=== PATIENT | female | born 1955 | race Two or more races ===

== ENCOUNTER 2023-05-07 20:48 | Outpatient (REF) | payer MEDICARE, OTHER, SELFPAY ==
[2023-05-10 15:09] LABS: Age Gdln ACOG Testing Note (.); Pap IG (Image Guided) Note (.)
== END 2023-05-07 20:49 | disposition home or self-care (01) ==
LOC: LAB 20:48
PROVIDERS: Visit Provider Obstetrics & Gynecology
DX: Z01.419 Encounter for gynecological examination (general) (routine) without abnormal findings (principal)
CPT/HCPCS: 87624; G0145

== ENCOUNTER 2024-04-10 09:06 | Outpatient (OUT) | payer MEDICARE, OTHER, SELFPAY ==
--- NOTE | 2024-04-10 09:15 | XR_ITS ---
The [address] [address] Patient Name: ISIDRO SAHU MRN: [id number] date: 1955 Sex: F Assigned Patient Location: [facility] Current Patient Location: Accession/Order Number: [id number] Exam Date: 04/10/2024 09:40 Report Date: 04/11/2024 05:09 At the request of: CY BRAMBILA Procedure: XR DEXA axial skeleton EXAMINATION: XR DEXA axial skeleton HISTORY: Screening For Osteoporosis COMPARISON: No relevant comparison available. TECHNIQUE: Dual-energy X-ray absorptiometry (DXA) was performed. FINDINGS: SPINE ANALYSIS: Average bone mineral density is 0.819 g/cm2. T-score (standard deviation relative to young adult mean): -3.0 . HIP ANALYSIS: Lowest bone mineral density is within the right femoral neck, 0.670 g/cm2. T-score (standard deviation relative to young adult mean): -2.6 . XR/XR DEXA axial skeleton IMPRESSION: World Health Organization Classification: Osteoporosis - High Fracture Risk FRAX: Cannot calculate. Pharmacologic treatment recommendations * No uniform recommendation applies to all patients. Management plans must be individualized. * Consider initiating pharmacologic treatment in postmenopausal women and men >= 50 years of age who have the following: Primary fracture prevention: * T-score <= - 2.5 at the femoral neck, total hip, lumbar spine, 33% radius (some uncertainty with existing data) by DXA. * Low bone mass (osteopenia: T-score between - 1.0 and - 2.5) at the femoral neck or total hip by DXA with a 10-year hip fracture risk >= 3% or a 10-year major osteoporosis-related fracture risk >= 20% (i.e., clinical vertebral, hip, forearm, or proximal humerus) based on the US-adapted FRAXregistered model. Secondary fracture prevention: * Fracture of the hip or vertebra regardless of BMD [4, 5]. * Fracture of proximal humerus, pelvis, or distal forearm in persons with low bone mass (osteopenia: T-score between - 1.0 and - 2.5). The decision to treat should be individualized in persons with a fracture of the proximal humerus, pelvis, or distal forearm who do not have osteopenia or low BMD [12, 13]. Jamie MS, Estrella SL, Roxy KL, Brian EM, Narcisa KG, AJ, Nora ES. The clinician's guide to prevention and treatment of osteoporosis. Osteoporos Int. 2021;33(10):8332-2086. doi: 10.1007/x18860-015-27587-a. Epub 2021Sep 14. Erratum in: Osteoporos Int. 2021Dec 14;: PMID: 88590024; PMCID: [id number]. Electronically authenticated by: WILMER BOYER Date: 04/11/2024 05:09
--- NOTE | 2024-04-10 09:15 | MM_ITS ---
Patient Name: ISIDRO SAHU MR#: [id number] : 1955 Exam Date: 04/10/2024 Ordering Doctor: DR Joey Newman . RADIOLOGY REPORT PROCEDURE: MM TOMOSYNTHESIS SCREENING BI COMPARISON: MG MAMM SCREEN ARTURO W CAD, 08/09/2014. INDICATIONS: Screening Calculator Name NCI Breast Cancer Risk Assessment Tool 5 Year Breast Cancer Risk 1.90% Lifetime Breast Cancer Risk 6.40% Personal Breast Cancer No Personal Ovarian Cancer No Treatments None Family Cancers Brother with bone cancer at age 58. LOCATION: The [facility] BREAST COMPOSITION: The breasts are heterogeneously dense,which may obscure small masses. FINDINGS: DIAGNOSTIC CATEGORY 1--NEGATIVE. RIGHT BREAST: No significant suspicious finding. LEFT BREAST: No significant suspicious finding. RECOMMENDATIONS: ROUTINE MAMMOGRAM AND CLINICAL EVALUATION IN 12 MONTHS. PLEASE NOTE: A NORMAL MAMMOGRAM DOES NOT EXCLUDE THE POSSIBILITY OF BREAST CANCER. A CLINICALLY SUSPICIOUS PALPABLE LUMP SHOULD BE BIOPSIED. Dictated by: Josh Skinner M.D. on 04/14/2024 at 13:26 Approved by: Josh Skinner M.D. on 04/14/2024 at 13:49
--- OUTSIDE RECORDS SUMMARY | 2024-04-10 09:22 | XMS_ITS | CCD ---
Author Organization [facility] Care Team Providers Care Director Ehs Name Role Phone Garima Mitchell Unavailable JAIME GABRIEL Referring Unavailable NO PCP, NO PCP Primary Care Unavailable JAIME GABRIEL Referring Unavailable NO PCP, NO PCP Primary Care Unavailable JAIME GABRIEL Attending Unavailable JAIME GABRIEL Admitting Unavailable NONE, NONE Primary Care Unavailable Medications Current Medications Medication Drug Class(es) Dates Sig (Normalized) Sig (Original) cetirizine hydrochloride 10 mg oral tablet (1 source) Histamine-1 Receptor Antagonist Start: 05-16-2023 take 1 tablet by mouth every twelve hours Cetirizine HCl 10 MG 1 tablet Orally Twice a day for 10 days Apr, Active fluticasone propionate 0.05 mg/actuat metered dose nasal spray (1 source) Corticosteroid Start: 05-16-2023 take 1 spray(s) nasal route twice daily Flonase Allergy Relief 50 MCG/ACT 1 spray in each nostril Nasally Twice a day for 14 days Apr, Active Problems Active Problems Problem Classification Problem Date Documented Date Episodic/Chronic Essential hypertension (1 source) Essential (primary) hypertension; Translations: [Essential (primary) hypertension] Onset: 05-27-2023 Chronic Otitis media and related conditions (1 source) Other acute nonsuppurative otitis media, bilateral Episodic Prolapse of female genital organs (4 sources) Urethrocele; Translations: [Female genital prolapse, unspecified] Onset: 05-27-2023 Chronic Past or Other Problems Problem Classification Problem Date Documented Date Episodic/Chronic Other nervous system disorders (1 source) Other acute postprocedural pain; Translations: [Other acute postprocedural pain] Onset: 05-30-2023 Episodic Results Test Name Value Interpretation Reference Range Facility OPERATIVE REPORTon OPERATIVE REPORT [address] [place] [address] OPERATIVE REPORT PATIENT NAME: ISIDRO SAHU : 1955 MED REC NO: [id number] ROOM: ACCOUNT NO: [id number] ADMIT DATE: 05/30/2023 PROVIDER: Jaime Gabriel DO DATE OF PROCEDURE: 05/30/2023 INDICATIONS FOR SURGERY: Symptomatic pelvic organ prolapse unamenable to conservative therapy without objectively demonstrable stress incontinence. PREOPERATIVE DIAGNOSIS: Grade 3 cystocele with grade 1 vaginal wall prolapse versus posterior apical rectocele. POSTOPERATIVE DIAGNOSIS: Grade 3 cystocele with grade 1 vaginal wall prolapse versus posterior apical rectocele. PROCEDURES: Anterior colporrhaphy, posterior colpoperineorrhaphy with iliococcygeus fascial plication and levatorplasty. SURGEON: Jaime Gabriel DO ASSISTANTS: Vanessa Vazquez DO and Alka Martinez DO ANESTHESIA: General endotracheal. FINDINGS: As above. SPECIMENS: Vaginal mucosa. COMPLICATIONS: None. ESTIMATED BLOOD LOSS: 20 mL. DRAINS: In-and-out Corey catheterization. IMPLANTS: None. PACKING: None. COURSE: Prior to the procedure, risks and benefits of the procedure were explained to the patient. The patient understood and signed informed consent under no duress or confusion. She received a preoperative antibiotic and EPC cuffs were functional. She was taken back to the OR and prepped and draped in sterile fashion in the dorsal lithotomy position in [facility]-cane stirrups. She was confirmed to be neutrally positioned by myself. A surgical time-out occurred. A weighted speculum was placed in the vagina and the bladder was drained with in-and-out Corey catheterization. There was a mild vault prolapse, but what was more obvious that there was more of a posterior high rectocele that would need repair in order to maintain the proper access after the anterior colporrhaphy. The anterior colporrhaphy was started with first by making a midline incision under the dependent portion of the cystocele. The cystocele was dissected back away from perivesical fascia and mucosa. There was no anterior enterocele. Horizontal plication of the suburethral tissues was completed with 2-0 Vicryl suture to plicate medial and lateral perivesical fascia. The redundant apical third of the bladder was pursestringed to reduce its central bulk and to prevent ureteral entrapment. A secondary layer of lateral perivesical fascia was brought into the midline in an attempt to reestablish the apical pubovaginal ring. Redundant mucosa was trimmed. The mucosa was closed with running 2-0 Vicryl suture. Next, posterior apical colpoperineorrhaphy with extension down to the introitus was made with a vertical incision. There was no significant enterocele or sigmoidocele. Once the rectocele was dissected away, midline plication with 1-0 Vicryl suture occurred and then a high iliococcygeus fascial plication was completed with 1-0 Vicryl suture to reestablish posterior apical support and maintain the proper axis of the vagina. Levatorplasty by plicating the arcus tendineus fascia rectus was also done without hour glassing the vagina. The confluence of the perineal body was built up for level 3 support with 1-0 Vicryl suture. 1-0 Vicryl suture was also used from the apex to introitus to close the superficial perirectal fascia and mucosa in a running manner. The vagina had good depth and girth and could admit two fingers up to the knuckle. Sponge and needle counts were correct at this time. Cystourethroscopy with 17-Bulgarian 30-degree cystourethroscope confirmed bilateral ureteral patency and no evidence of leakage at 300 mL of filling on a Valsalva-Crede maneuver. There was no cystotomy or intravesical suturing. A rectal exam confirmed no rectotomy or bleeding and no intrarectal sutures. The bladder was drained 50%. The procedure was felt to be complete. A postoperative time-out occurred. The patient went to Recovery in stable fashion. The family was updated by personal consultation. An attempt at voiding trial will be done. The patient may go home with the catheter and she has voiced she has reviewed both written and video instructions. She will go home on usual medicines, may restart her home medicines. She will follow up in 1 week and then will be called tomorrow for a weekend safety check. JAIME GABRIEL DO ETELVINA/[id number] Doc#: [id number] CC: Jaime Gabreil DO Normal [facility] Surgical Pathology Reporton 05-30-2023 Surgical Pathology Report (NOTE) Path Number: [id number] -- Diagnosis -- VAGINAL MUCOSA, EXCISION: - BENIGN SQUAMOUS MUCOSA WITH FOCAL/MILD REACTIVE SURFACE HYPERKERATOSIS AND PARAKERATOSIS AND WITH MILD SUBEPITHELIAL FIBROSIS AND MILD CHRONIC INFLAMMATION. Jm Fowler M.D. Electronically Signed Out sls/06/03/2023 Clinical Information Pre-Op Diagnosis: VAGINAL PROLAPSE; CYSTOCELE, UNSPECIFIED Operative Findings: VAGINAL MUCOSA Operation Performed: VAGINAL REPAIR ANTERIOR AND POSTERIOR WITH CYSTO kb Source of Specimen A: VAGINAL MUCOSA Gross Description ISIDRO SAHU VAGINAL MUCOSA Received in formalin are two crane-britt, wrinkled and rubbery fragments of vaginal mucosa, 4.9 and 6.0 cm. Sectioning reveals britt, rubbery cut surfaces with no well-defined mass or lesion identified. Integrated Circuit Design Engineer sections 1c. tm SM/kb2:05/31/2023 Microscopic Description Microscopic examination performed. Processing Lab: [place] [address] Interpretation Performed at [place] [id number] SURGICAL PATHOLOGY CONSULTATION Patient Name: ISIDRO SAHU [facility] Rec: [id number] [facility] ANATOMIC PATHOLOGY [address] [place] [address]. [place] [address] Normal [facility] BASIC METABOLIC PANLon 05-27 Anion gap [Moles/Vol] 6 mmol/L Normal 5-15 [facility] Comment on above: Performed By: #### B MP, CBCA #### [facility] ([id number]) [address], [address] [place] [address] Calcium [Mass/Vol] 9.5 mg/dL Normal 8.5-10.5 [facility] Comment on above: Performed By: #### B MP, CBCA #### [facility] ([id number]) [address] [place] [address] Chloride [Moles/Vol] 106 mmol/L Normal 98-109 [facility] Comment on above: Performed By: #### DIPAK Ruano MP #### [facility] ([id number]) [address] [address] CO2 [Moles/Vol] 31 mmol/L Normal 22-32 [facility] Comment on above: Performed By: #### DIPAK Ruano MP #### [facility] ([id number]) [address] [address] Creatinine [Mass/Vol] 0.76 mg/dL Normal 0.40-1.00 [facility] Comment on above: Result Comment: METH OD TRACEABLE TO IDMS STANDARD Performed By: #### B DIPAK KAY #### [facility] ([id number]) [address] [address] GFR/1.73 sq M.predicted among non-blacks MDRD (S/P/Bld) [Vol rate/Area] 86 mL/min/{1.73_m2} Normal >59 [facility] Comment on above: Result Comment: Reported eGFR is based on the CKD-EPI 2020 equation that does not use a race coefficient. Performed By: #### DIPAK Ruano MP #### [facility] ([id number]) [address] [address] Glucose [Mass/Vol] 93 mg/dL Normal 65-99 [facility] Comment on above: Performed By: #### DIPAK Ruano MP #### [facility] ([id number]) [address] [address] Potassium [Moles/Vol] 4.0 mmol/L Normal 3.5-5.0 [facility] Comment on above: Performed By: #### DIPAK Ruano MP #### [facility] ([id number]) [address] [place] [address] Sodium [Moles/Vol] 143 mmol/L Normal 134-146 [facility] Comment on above: Performed By: #### B RAHUL CBCA #### [facility] ([id number]) [address] [address] [place] [address] Urea nitrogen [Mass/Vol] 16 mg/dL Normal 5-27 [facility] Comment on above: Performed By: #### B RAHUL, CBCA #### [facility] ([id number]) [address] [address] CBC AND AUTO DIFFon 05-27-19 24 ABSOLUTE BASOPHIL 0.0 X10E9/L Normal 0.0-0.2 [facility] Comment on above: Performed By: #### B RAHUL, CBCA #### [facility] ([id number]) [address] [address] ABSOLUTE NEUTROPHIL 2.6 X10E9/L Normal 1.5-6.6 [facility] Comment on above: Performed By: #### B RAHUL CBCA #### [facility] ([id number]) [address] [address] Basophils/100 WBC (Bld) 0.6 % Normal [facility] Comment on above: Performed By: #### B RAHUL, CBCA #### [facility] ([id number]) [address] [address] Eosinophils (Bld) [#/Vol] 0.1 10*3/uL Normal 0.0-0.4 [facility] Comment on above: Performed By: #### B MP, CBCA #### [facility] ([id number]) [address] [address] [place] [address] Eosinophils/100 WBC (Bld) 1.4 % Normal [facility] Comment on above: Performed By: #### B MP, CBCA #### [facility] ([id number]) [address] [address] [place] [address] Erythrocyte distribution width (RBC) [Ratio] 12.5 % Normal 11.5-15.0 [facility] Comment on above: Performed By: #### B MP, CBCA #### [facility] ([id number]) [address], [address] [place] [address] Hematocrit (Bld) [Volume fraction] 40.8 % Normal 35-47 [facility] Comment on above: Performed By: #### B MP, CBCA #### [facility] ([id number]) [address] [address] [place] [address] Hemoglobin (Bld) [Mass/Vol] 13.8 g/dL Normal 11.7-15.5 [facility] Comment on above: Performed By: #### B MP, CBCA #### [facility] ([id number]) [address] [address] [place] [address] Lymphocytes (Bld) [#/Vol] 1.9 10*3/uL Normal 1.0-3.5 [facility] Comment on above: Performed By: #### B MP, CBCA #### [facility] ([id number]) [address] [address] [place] [address] Lymphocytes/100 WBC (Bld) 38.5 % Normal [facility] Comment on above: Performed By: #### B MP, CBCA #### [facility] ([id number]) [address] [address] [place] [address] MCH (RBC) [Entitic mass] 33.2 pg Normal 27-34 [facility] Comment on above: Performed By: #### B MP, CBCA #### [facility] ([id number]) [address] [address] [place] [address] MCHC (RBC) [Mass/Vol] 33.8 g/dL Normal 32-36 [facility] Comment on above: Performed By: #### B MP, CBCA #### [facility] ([id number]) [address], [address] [place] [address] MCV (RBC) [Entitic vol] 98 fL Normal 80-100 [facility] Comment on above: Performed By: #### B MP, CBCA #### [facility] ([id number]) [address], [facility] [address] [place] [address] Monocytes (Bld) [#/Vol] 0.3 10*3/uL Normal 0-0.9 [facility] Comment on above: Performed By: #### B MP, CBCA #### [facility] ([id number]) [address], [address] [place] [address] Monocytes/100 WBC (Bld) 6.8 % Normal [facility] Comment on above: Performed By: #### B MP, CBCA #### [facility] ([id number]) [address], [facility] [address] [place] [address] Neutrophils/100 WBC (Bld) 52.7 % Normal [facility] Comment on above: Performed By: #### B MP, CBCA #### [facility] ([id number]) [address], [address] [place] [address] Platelet mean volume (Bld) [Entitic vol] 8.5 fL Normal 7-12 [facility] Comment on above: Performed By: #### B MP, CBCA #### [facility] ([id number]) [address], [address] [place] [address] Platelets (Bld) [#/Vol] 228 10*3/uL Normal 150-450 [facility] Comment on above: Performed By: #### B MP, CBCA #### [facility] ([id number]) [address], [address] [place] [address] RBC COUNT 4.16 X10E12/L Normal 3.80-5.20 [facility] Comment on above: Performed By: #### B MP, CBCA #### [facility] ([id number]) [address], [address] [place] [address] WBC (Bld) [#/Vol] 4.9 10*3/uL Normal 4.0-11.0 [facility] Comment on above: Performed By: #### B MP, CBCA #### [facility] ([id number]) [address], [address] [place] [address] Vital Signs Date Time Vital Sign Value Performing Clinician Facility 05-16-2023 12:15-0500 Body height 152.4 cm Garima Mitchell Other [facility] Other 05-16-2023 12:15-0500 Body mass index (BMI) [Ratio] 30.27 kg/m2 Garima Mitchell Other [facility] Other 05-16-2023 12:15-0500 Body temperature 98.2 [degF] Garima Mitchell Other [facility] Other 05-16-2023 12:15-0500 Body weight 70.31 kg Garima Mitchell Other [facility] Other 05-16-2023 12:15-0500 Diastolic blood pressure 81 mm[Hg] Garima Mitchell Other [facility] Other 05-16-2023 12:15-0500 Respiratory rate 18 /min Garima Mitchell Other [facility] Other 05-16-2023 12:15-0500 SaO2% (BldA) [Mass fraction] 97 % Garima Mitchell Other [facility] Other 05-16-2023 12:15-0500 Systolic blood pressure 151 mm[Hg] Garima Mitchell Other [facility] Other Encounters Encounter Date Encounter Type Care Provider Facility Start: 05-30-2023 End: 05-30-2023 ambulatory JAIME GABRIEL [facility] Start: 05-27-2023 End: 05-28-2023 ambulatory JAIME Ashley [facility] Start: 05-16-2023 End: 05-16-2023 ambulatory Garima Mitchell Other [facility] Other Start: 05-16-2023 Office outpatient ne w 30 minutes Garima Mitchell [facility] [place] Payers Date Payer Category Payer Medicare [id number] 2.1 [id number] 2022 Unknown [id number] 1955 Unknown [id number] 2.16.84 [id number] 1955 Unknown [id number] 2.16.84 [id number] 1955 Unknown [id number] [id number]. [id number] Unknown [id number] 2.16.8 [id number] Social History Date Type Detail Facility Unknown if ever smoked [facility] Other Sex Assigned At Sex Assigned At Bir th [facility] Other Evaluation note 05-16-2023 Note Date & Type Note Facility 05-16-2023 Evaluation note Encounter Date Diagnosis Assessment Notes Apr, Acute middle ear effusion, bilateral (ICD-10 - H65.193) Discussed diagnosis with patient, explained to patient that there is middle ear fluid without signs of bacterial infection, antibiotics are not indicated at this time. This is commonly due to ET dysfunction, viral illness, allergies, barotrauma, or recent AOM. Advised patient that fluid in middle ear may take several weeks to resolve. Take rx medications as directed. Supportive treatment as directed, push fluids/test, Tylenol/Motrin for discomfort. Follow up with PCP in 2 weeks or sooner for new or worsening symptoms. Patient verbalizes understanding and is agreeable to treatment plan [facility] Other History general Narrative - Reported Note Date & Type Note Facility History general Narrative - Reported Type Surgical History partial hysterectomy Surgical History eptopic Surgical History vaginal prolapse [facility] Other Summary Purpose Family History No Family History Records FoundNo Family History Records Found Advance Directives No Advanced Directives Records FoundNo Advanced Directives Records Found Additional Source Comments REASON FOR VISIT (unrecogniz ed section and content) PLUGGED EAR, LIGHT HEADNESS INFORMATION SOURCE (unrecogn ized section and content) DATE CREATED AUTHOR 06/02/2023 [facility] DATE CREATED AUTHOR AUTHOR'S ORGANIZ ATION 01/11/2024 [facility] FOR RECORDS PERTAINING TO PATIENTS WHO ARE OR HAVE BEEN ENROLLED IN A CHEMICAL DEPENDENCY/SUBSTANCEABUSE PROGRAM, SOME INFORMATION MAY BE OMITTED. This clinical summary was aggregated from multiple sources. Caution should be exercised in using it in the provision of clinical care. This summary normalizes information from multiple sources, and as a consequence, information in this document may materially change the coding, format and clinical context of patient data. In addition, data may be omitted in some cases. CLINICAL DECISIONS SHOULD BE BASED ON THE PRIMARY CLINICAL RECORDS. [employer] provides no warranty or guarantee of the accuracy or completeness of information in this document.
== END 2024-04-10 09:07 | disposition home or self-care (01) ==
LOC: MAMMO 09:09
PROVIDERS: Visit Provider Obstetrics & Gynecology
DX: Z12.31 Encounter for screening mammogram for malignant neoplasm of breast (principal); Z13.820 Encounter for screening for osteoporosis; M81.0 Age-related osteoporosis without current pathological fracture
CPT/HCPCS: 77063; 77067; 77080

== ENCOUNTER 2024-06-03 20:48 | Outpatient (REF) | payer MEDICARE, OTHER, SELFPAY ==
--- OUTSIDE RECORDS SUMMARY | 2024-06-03 20:52 | XMS_ITS | CCD ---
Author Organization [facility] Care Team Providers Care Document Management Consultant Name Role Phone Garima Mitchell Unavailable JAIME GABRIEL Referring Unavailable NO PCP, NO PCP Primary Care Unavailable JAIME GABRIEL Referring Unavailable NO PCP, NO PCP Primary Care Unavailable JAIME GABRIEL Attending Unavailable JAIME GABRIEL Admitting Unavailable NONE, NONE Primary Care Unavailable Unavailable Primary Care Provider Unavailkatie e CY NEWMAN Attending Unavailable CY NEWMAN Attending Unavailable Medications Current Medications Medication Drug Class(es) [...] Translations: [Essential (primary) hypertension] Onset: 05-27-2023 Chronic Osteoporosis (2 sources) Osteoporosis; Translations: [Age-related osteoporosis without current pathological fracture] 04-29-2024 Chronic Other screening for suspected conditions (not mental disorders or infectious disease) (2 sources) Patient encounter status; Translations: [Encounter for screening mammogram for malignant neoplasm of breast] 06-03-2024 Episodic Otitis media and related conditions (1 source) [...] Reference Range Facility OPERATIVE REPORTon OPERATIVE REPORT [address] [address] OPERATIVE REPORT PATIENT NAME: INDIA SAHU : 1955 MED REC NO: [id number] ROOM: ACCOUNT NO: [id number] ADMIT DATE: 05/30/2023 PROVIDER: Jaime Gabriel DO [...] fashion in the dorsal lithotomy position in [facility] stirr[facility]. She was confirmed to be neutrally [...] were correct at this time. Cystourethroscopy with 17-Chinese 30-degree cystourethroscope confirmed bilateral ureteral patency and [...] tomorrow for a weekend safety check. JAIME Ramirez DO HARVEY ETELVINA/[email or web address] Doc#: [id number] CC: Jaime Gabriel DO Normal [facility] Surgical Pathology Reporton 05-30-2023 Surgical Pathology Report (NOTE) Path Number: [id number] -- Diagnosis -- VAGINAL MUCOSA, EXCISION: - BENIGN SQUAMOUS MUCOSA WITH FOCAL/MILD REACTIVE SURFACE HYPERKERATOSIS AND PARAKERATOSIS AND WITH MILD SUBEPITHELIAL FIBROSIS AND MILD CHRONIC INFLAMMATION. Jm Fowler M.D. Electronically Signed Out sls/06/03/2023 Clinical Information Pre-Op Diagnosis: VAGINAL PROLAPSE; CYSTOCELE, UNSPECIFIED Operative Findings: VAGINAL MUCOSA Operation Performed: VAGINAL REPAIR ANTERIOR AND POSTERIOR WITH CYSTO kb Source of Specimen A: VAGINAL MUCOSA Gross Description INDIA SAHU, VAGINAL MUCOSA Received in formalin are two crane-britt, wrinkled and rubbery fragments of vaginal mucosa, 4.9 and 6.0 cm. Sectioning reveals britt, rubbery cut surfaces with no well-defined mass or lesion identified. Nuclear Logging Engineer sections 1c. tm SM/kb2:05/31/2023 Microscopic Description Microscopic examination performed. Processing Lab: [address] [address] Interpretation Performed at [address] [address] SURGICAL PATHOLOGY CONSULTATION Patient Name: INDIA SAHU [facility] Rec: [id number] [facility] ANATOMIC PATHOLOGY [address] [place] [address]. [place], [place] [address] Normal [facility] BASIC METABOLIC PANLon 05-27 Anion gap [Moles/Vol] 6 mmol/L Normal 5-15 [facility] Comment on above: Performed By: #### B MP, CBCA #### [facility] ([id number]) [address], [address] [place] [address] Calcium [Mass/Vol] 9.5 mg/dL Normal 8.5-10.5 [facility] Comment on above: Performed By: #### B RAHUL, CBCA #### [facility] ([id number]) [address], [address] [place] [address] Chloride [Moles/Vol] 106 mmol/L Normal 98-109 [facility] Comment on above: Performed By: #### B RAHUL CBCA #### [facility] ([id number]) [address], [address] [place] [address] CO2 [Moles/Vol] 31 mmol/L Normal 22-32 [facility] Comment on above: Performed By: #### B RAHUL CBCA #### [facility] ([id number]) [address], [address] [place] [address] Creatinine [Mass/Vol] 0.76 mg/dL Normal 0.40-1.00 [facility] Comment on above: Result Comment: METH OD TRACEABLE TO IDMS STANDARD Performed By: #### B DIPAK KAY #### [facility] ([id number]) [address], [address] [place] [address] GFR/1.73 sq M.predicted among non-blacks MDRD (S/P/Bld) [Vol rate/Area] 86 mL/min/{1.73_m2} Normal >59 [facility] Comment on above: Result Comment: Reported eGFR is based on the CKD-EPI 2020 equation that does not use a race coefficient. Performed By: #### B RAHUL CBCA #### [facility] ([id number]) [address], [address] [place] [address] Glucose [Mass/Vol] 93 mg/dL Normal 65-99 [facility] Comment on above: Performed By: #### B WINIFRED KAYA #### [facility] ([id number]) [address] [place] [address] Potassium [Moles/Vol] 4.0 mmol/L Normal 3.5-5.0 [facility] Comment on above: Performed By: #### B MP, CBCA #### [facility] ([id number]) [address] [place] [address] Sodium [Moles/Vol] 143 mmol/L Normal 134-146 [facility] Comment on above: Performed By: #### B MP, CBCA #### [facility] ([id number]) [address] [place] [address] Urea nitrogen [Mass/Vol] 16 mg/dL Normal 5-27 [facility] Comment on above: Performed By: #### B MP, CBCA #### [facility] ([id number]) [address] [place] [address] CBC AND AUTO DIFFon 05-27-19 24 ABSOLUTE BASOPHIL 0.0 X10E9/L Normal 0.0-0.2 [facility] Comment on above: Performed By: #### B MP, CBCA #### [facility] ([id number]) [address], [address] [place] [address] ABSOLUTE NEUTROPHIL 2.6 X10E9/L Normal 1.5-6.6 [facility] Comment on above: Performed By: #### B MP, CBCA #### [facility] ([id number]) [address] [place] [address] Basophils/100 WBC (Bld) 0.6 % Normal [facility] Comment on above: Performed By: #### B MP, CBCA #### [facility] ([id number]) [address] [place] [address] Eosinophils (Bld) [#/Vol] 0.1 10*3/uL Normal 0.0-0.4 [facility] Comment on above: Performed By: #### B MP, CBCA #### [facility] ([id number]) [address], [address] [place] [address] Eosinophils/100 WBC (Bld) 1.4 % Normal [facility] Comment on above: Performed By: #### B MP, CBCA #### [facility] ([id number]) [address] [address] [place] [address] Erythrocyte distribution width (RBC) [Ratio] 12.5 % Normal 11.5-15.0 [facility] Comment on above: Performed By: #### B MP, CBCA #### [facility] ([id number]) [address] [address] [place] [address] Hematocrit (Bld) [Volume fraction] 40.8 % Normal 35-47 [facility] Comment on above: Performed By: #### B MP, CBCA #### [facility] ([id number]) [address] [address] [place] [address] Hemoglobin (Bld) [Mass/Vol] 13.8 g/dL Normal 11.7-15.5 [facility] Comment on above: Performed By: #### B MP, CBCA #### [facility] ([id number]) [address] [place] [address] Lymphocytes (Bld) [#/Vol] 1.9 10*3/uL Normal 1.0-3.5 [facility] Comment on above: Performed By: #### B MP, CBCA #### [facility] ([id number]) [address] [address] [place] [address] Lymphocytes/100 WBC (Bld) 38.5 % Normal [facility] Comment on above: Performed By: #### B MP, CBCA #### [facility] ([id number]) [address] [place] [address] MCH (RBC) [Entitic mass] 33.2 pg Normal 27-34 [facility] Comment on above: Performed By: #### B MP, CBCA #### [facility] ([id number]) [address] [place] [address] MCHC (RBC) [Mass/Vol] 33.8 g/dL Normal 32-36 [facility] Comment on above: Performed By: #### B MP, CBCA #### [facility] ([id number]) [address] [place] [address] MCV (RBC) [Entitic vol] 98 fL Normal 80-100 [facility] Comment on above: Performed By: #### B RAHUL, CBCA #### [facility] ([id number]) [address] [place] [address] Monocytes (Bld) [#/Vol] 0.3 10*3/uL Normal 0-0.9 [facility] Comment on above: Performed By: #### B MP, CBCA #### [facility] ([id number]) [address] [place] [address] Monocytes/100 WBC (Bld) 6.8 % Normal [facility] Comment on above: Performed By: #### B MP, CBCA #### [facility] ([id number]) [address] [place] [address] Neutrophils/100 WBC (Bld) 52.7 % Normal [facility] Comment on above: Performed By: #### B MP, CBCA #### [facility] ([id number]) [address] [place] [address] Platelet mean volume (Bld) [Entitic vol] 8.5 fL Normal 7-12 [facility] Comment on above: Performed By: #### B MP, CBCA #### [facility] ([id number]) [address] [place] [address] Platelets (Bld) [#/Vol] 228 10*3/uL Normal 150-450 [facility] Comment on above: Performed By: #### B MP, CBCA #### [facility] ([id number]) [address] [place] [address] RBC COUNT 4.16 X10E12/L Normal 3.80-5.20 [facility] Comment on above: Performed By: #### B MP, CBCA #### [facility] ([id number]) [address] [place] [address] WBC (Bld) [#/Vol] 4.9 10*3/uL Normal 4.0-11.0 [facility] Comment on above: Performed By: #### B MP, CBCA #### [facility] ([id number]) [address] [place] [address] Vital Signs Date Time Vital Sign Value Performing Clinician Facility 06-03-2024 10:00-0500 Body weight 72.3 kg Jovita DENNIS Work Phone: [facility] 06-03-2024 10:00-0500 Diastolic blood pressure 84 mm[Hg] Jovita DENNIS Work Phone: [facility] 06-03-2024 10:00-0500 Systolic blood pressure 132 mm[Hg] Jovita DENNIS Work Phone: [facility] 05-16-2023 12:15-0500 Body height 152.4 cm Garima Mitchell Other [email or web address] Other 05-16-2023 12:15-0500 Body mass index (BMI) [Ratio] 30.27 kg/m2 Garima Mitchell Other [email or web address] Other 05-16-2023 12:15-0500 Body temperature 98.2 [degF] Garima Mitchell Other [email or web address] Other 05-16-2023 12:15-0500 Body weight 70.31 kg Garima Mitchell Other [email or web address] Other 05-16-2023 12:15-0500 Diastolic blood pressure 81 mm[Hg] Garima Mitchell Other [email or web address] Other 05-16-2023 12:15-0500 Respiratory rate 18 /min Garima Mitchell Other [email or web address] Other 05-16-2023 12:15-0500 SaO2% (BldA) [Mass fraction] 97 % Garima Mitchell Other [email or web address] Other 05-16-2023 12:15-0500 Systolic blood pressure 151 mm[Hg] Garima Mitchell Other [email or web address] Other Encounters Encounter Date Encounter Type Care Provider Facility Start: 06-03-2024 End: 06-03-2024 Bamboo flowsheet Jovita DENNIS Work Phone: [facility] Start: 06-03-2024 End: 06-03-2024 Bamboo flowsheet Jovita DENNIS Work Phone: [facility] Start: 06-03-2024 End: 06-03-2024 Patient encounter procedure Jovita DENNIS Work Phone: [facility] Work Phone: Start: 06-03-2024 End: 06-03-2024 Periodic preventive med est patient 65yrs& older Jovita DENNIS Work Phone: [facility] Comment on above: Well woman exam with routine gynecological exam; Encounter for screening mammogram for malignant neoplasm of breast Start: 04-29-2024 End: 04-29-2024 ambulatory CY JARVISO Not Available Start: 04-29-2024 End: 04-29-2024 Phys/qhp telephone evaluation 5-10 min Cy Jarviso DO Work Phone: [facility] Comment on above: Osteoporosis of mult iple sites without pathological fracture (CMS/HCC) Start: 05-30-2023 End: 05-30-2023 ambulatory JAIME GABRIEL [facility] Start: 05-27-2023 End: 05-28-2023 ambulatory JAIME GABRIEL [facility] Start: 05-16-2023 End: 05-16-2023 ambulatory Garima Mitchell Other [email or web address] Other Start: 05-16-2023 Office outpatient ne w 30 minutes Garima Mitchell [facility] Start: 05-07-2023 End: 05-07-2023 ambulatory CY NEWMAN Not Available Plan of Treatment Date Care Activity Detail Author Start: 06-03-2024 End: 06-03-2025 Lipid 1996 panel - Serum or Plasma Lipid panel Lab Routine Well woman exam with routine gynecological exam Expected: 06/03/2024 (Approximate), Expires: 06/03/2025 [facility] Comment on above: Expected: 06/03/2024 (Approximate), Expires: 06/03/2025 Start: 06-03-2024 End: 08-01-2025 MG Breast - bilateral Screening Bilateral screening mammogram Imaging Routine Encounter for screening mammogram for malignant neoplasm of breast Expected: 06/03/2024, Expires: 08/01/2025 [facility] Work Phone: Comment on above: Expected: 06/03/2024 , Expires: 08/01/2025 Start: 06-03-2024 End: 06-03-2024 Patient encounter procedure 06/03/2024 10:00 AM EST Office Visit [facility] [address] [place] [address] Jovita Horowitz PA [address] [place] [address] Arrived [facility] Comment on above: Arrived Start: 05-25-2024 End: 05-25-2024 Patient encounter procedure 05/25/2024 10:00 AM EST Office Visit [facility] [address] [facility] [place] [id number] Cy Newman DO [address] [place] [address] [facility] CBC W Auto Different ial panel - Blood CBC and differential Lab Routine Well woman exam with routine gynecological exam Ordered: 06/03/2024 [facility] Comment on above: Ordered: 06/03/2024 Comprehensive metabo lic 2000 panel - Serum or Plasma Comprehensive metabolic panel Lab Routine Well woman exam with routine gynecological exam Ordered: 06/03/2024 [facility] Comment on above: Ordered: 06/03/2024 Hemoglobin A1c/Hemoglobin.total in Blood Hemoglobin A1c Lab Routine Well woman exam with routine gynecological exam Ordered: 06/03/2024 [facility] Comment on above: Ordered: 06/03/2024 THIN PREP TIS PAP AN D HR HPV DNA THIN PREP TIS PAP AND HR HPV DNA Pathology and Cytology Routine Well woman exam with routine gynecological exam Ordered: 06/03/2024 [facility] Comment on above: Ordered: 06/03/2024 Thyrotropin [Units/volume] in Serum or Plasma TSH Lab Routine Well woman exam with routine gynecological exam Ordered: 06/03/2024 [facility] Comment on above: Ordered: 06/03/2024 Payers Date Payer Category Payer Medicare MEDICARE [id number] 2022 Private Health Insurance [facility] [place] [address] [id number] 2022 Medicare [id number] 2022 Unknown [id number] 2022 Unknown [id number] 1955 Unknown [id number] [id number] 1955 Unknown [id number] [id number] 1955 Unknown [id number] [id number] 1955 Unknown [id number] [id number] 1955 Unknown [id number] [id number] Social History Date Type Detail Facility Unknown if ever smoked [email or web address] Other Sex Assigned At Sex Assigned At Bir th [email or web address] Other Tobacco smoking stat [facility] Tobacco smoking consumption unknown [facility] Start: 1955 Sex assigned at Female [facility] Start: 02-04-2023 Gender identity Identifies as female gender (finding) [facility] Start: 02-04-2023 Sexual orientation Heterosexual (finding) [facility] History of Present illness Narrative 06-03-2024 SONNY Romero - 06/03/2024 10:00 AM EST Note Date & Type Note Facility 06-03-2024 History of Presen t illness Narrative Reason for Appointment: Patient ID: Lupe Sahu is a 69 y.o. female who presents for Well Women Visit Patient presents today for Annual Exam. MEDICATIONS No current outpatient medications ALLERGIES No Known Allergies PROBLEMS Active Ambulatory Problems Diagnosis Date Noted No Active Ambulatory Problems Resolved Ambulatory Problems Diagnosis Date Noted No Resolved Ambulatory Problems Past Medical History: Diagnosis Date Androgenic alopecia Ectopic Herpes zoster Menopause present Menorrhagia Pneumococcal sepsis (CMS/[facility]) HISTORY PAST MEDICAL HISTORY SOCIAL HISTORY Past Medical History: Diagnosis Date Androgenic alopecia hx high DHEA Ectopic Herpes zoster Menopause present Menorrhagia Pneumococcal sepsis (CMS/HCC) Social History Tobacco Use Smoking status: Not on file Smokeless tobacco: Not on file Substance Use Topics Alcohol use: Not on file Drug use: Not on file FAMILY HISTORY Family History Problem Relation Name Age of Onset Other (Lumbar Stenosis) Mother Cancer Father Heart disease Brother Older brother deceasec 2010 , myocardial disease Heart disease Maternal Grandmother Pneumonia Maternal Grandfather Stroke Paternal Grandfather Hypothyroidism Daughter SURGICAL HISTORY Past Surgical History: Procedure Laterality Date ABDOMINAL [place]STERECTOMY [facility] [place] Abdominal hysterectomy, has ovaries CHEST TUBE following pneumococcal sepsis DILATION AND CURETTAGE 1982 VAGINAL PROLAPSE REPAIR N/A 05/2023 REVIEW OF SYSTEMS Review of Systems: Review of Systems Constitutional: Negative. HENT: Negative. Eyes: Negative. Respiratory: Negative. Cardiovascular: Negative. Gastrointestinal: Negative. Genitourinary: Negative. Musculoskeletal: Negative. Skin: Negative. Neurological: Negative. All other systems reviewed and are negative. Hematological: Negative. Endocrine: Negative. Allergic/Immunologic: Negative. OBJECTIVE Objective: Physical Exam Constitutional: Appearance: Normal appearance. Genitourinary: Right Adnexa: not tender and no mass present. Left Adnexa: not tender and no mass present. Cervix is absent. No cervical discharge. Uterus is absent. Breasts: Breasts are soft. Right: Normal. Left: Normal. HENT: Head: Normocephalic. Nose: Nose normal. Mouth/Throat: Mouth: Mucous membranes are moist. Cardiovascular: Rate and Rhythm: Normal rate. Pulmonary: Effort: Pulmonary effort is normal. Abdominal: General: Bowel sounds are normal. Palpations: Abdomen is soft. Musculoskeletal: General: Normal range of motion. Cervical back: Normal range of motion. Neurological: General: No focal deficit present. Mental Status: She is alert. Skin: General: Skin is warm and dry. Psychiatric: Mood and Affect: Mood normal. Vitals and nursing note reviewed. Exam conducted with a talent recruiter present. Vitals: There is no height or weight on file to calculate BMI. BP: 132/84 No LMP recorded. ASSESSMENT & PLAN ICD-10-CM 1. Well woman exam with routine gynecological exam Z01.419 THIN PREP TIS PAP AND HR HPV DNA 2. Encounter for screening mammogram for malignant neoplasm of breast Z12.31 Bilateral screening mammogram Bilateral screening mammogram Annual Exam: Patient presents today for an annual exam. Patient states she is doing well and has no complaints. Pap was obtained without difficulty. Orders Placed This Encounter Procedures Bilateral screening mammogram TSH Lipid panel Comprehensive metabolic panel Hemoglobin A1c CBC and differential Follow Up: Patient is to return in one year for annual unless needed otherwise. Documented by SONNY Romero on behalf of: SONNY Romero documented in this encounter [facility] History of Present illness Narrative 04-29-2024 Shawnee Rosales LPN - 04/29/2024 8:00 AM EST Note Date & Type Note Facility 04-29-2024 History of Presen t illness Narrative Reason for Appointment: Patient ID: Lupe Sahu is a 69 y.o. female who presents for Telehealth Patient presents today via telephone call for a telehealth appointment. Patients Phone #: [phone] (mobile) Current Medications: currently has no medications in their medication list. Medical History: Active Ambulatory Problems Diagnosis Date Noted No Active Ambulatory Problems Resolved Ambulatory Problems Diagnosis Date Noted No Resolved Ambulatory Problems Past Medical History: Diagnosis Date Androgenic alopecia Ectopic Herpes zoster Menopause present Menorrhagia Pneumococcal sepsis (CMS/HCC) Family History Problem Relation Name Age of Onset Other (Lumbar Stenosis) Mother Cancer Father Heart disease Brother Older brother deceasec 2010 , myocardial disease Heart disease Maternal Grandmother Pneumonia Maternal Grandfather Stroke Paternal Grandfather Hypothyroidism Daughter Social History Tobacco Use Smoking status: Not on file Smokeless tobacco: Not on file Substance Use Topics Alcohol use: Not on file Drug use: Not on file Past Surgical History: Procedure Laterality Date ABDOMINAL HYSTERECTOMY [facility] 2002 Abdominal hysterectomy, has ovaries CHEST TUBE following pneumococcal sepsis DILATION AND CURETTAGE 1982 No Known Allergies Vitals: There is no height or weight on file to calculate BMI. BP: No LMP recorded. Assessment/Plan Encounter Diagnosis Name Primary? Osteoporosis of multiple sites without pathological fracture (CMS/[facility]) Discussed osteoporosis diagnosis with pt as seen on dexa scan. Reviewed in detail. Discussed Prolia injections with pt in great detail. Pt declines at current moment. Pt will research Prolia and osteoporosis- hip fracture. Pt agreed with plan of care and to continue to take supplements vitmain d calcium and weight bearing exercises. Pt to return for annual. Today's telehealth visit consisted of spending 8 minutes talking to patient on the phone. Documented by Shawnee Rosales LPN on behalf of: Cy Newman DO documented in this encounter [facility] Evaluation note 05-16-2023 Note Date & Type [...] understanding and is agreeable to treatment plan [email or web address] Other Evaluation note Note Date & Type Note Facility Evaluation note Diagnosis Osteoporosis of multiple sites without pathological fracture (CMS/HCC) documented in this encounter [facility] Evaluation note Note Date & Type Note Facility Evaluation note Diagnosis Well woman exam with routine gynecological exam Routine gynecological examination Encounter for screening mammogram for malignant neoplasm of breast documented in this encounter [facility] History general Narrative - Reported Note Date & Type Note Facility History general Narrative - Reported Type Surgical History partial hysterectomy Surgical History eptopic Surgical History vaginal prolapse [email or web address] Other Summary Purpose Family History No Family History Records FoundNo Family History Records FoundNo Family History Records Found Advance Directives No Advanced Directives Records FoundNo Advanced Directives Records FoundNo Advanced Directives Records Found Additional Source Comments REASON FOR VISIT (unrecogniz ed section and content) Reason Comments Telehealth Reason Comments Well Women Visit INFORMATION SOURCE (unrecogn ized section and content) DATE CREATED AUTHOR 06/02/2023 [facility] DATE CREATED AUTHOR AUTHOR'S ORGANIZ ATION 01/11/2024 [facility] DATE CREATED AUTHOR AUTHOR'S ORGANIZ ATION 05/02/2024 [facility] EPIC FOR RECORDS PERTAINING TO PATIENTS WHO ARE [...] BE BASED ON THE PRIMARY CLINICAL RECORDS. [employer] provides no warranty or guarantee of the accuracy or completeness of information in this document.
== END 2024-06-03 20:49 | disposition home or self-care (01) ==
LOC: LAB 20:48
PROVIDERS: Visit Provider Physician Assistant
DX: Z01.419 Encounter for gynecological examination (general) (routine) without abnormal findings (principal)
CPT/HCPCS: 88175